=== PATIENT | female | born 1970 | race Caucasian/White ===

== ENCOUNTER 2017-12-07 14:27 | Emergency (ER) | payer BC ==
[2017-12-07 14:34] VITALS: TEMP 98.2
--- NOTE | 2017-12-07 14:38 | CPEKG ---
Heart Rate: 83 RR Interval: 723 P-R Interval: 172 QRSD Interval: 94 QT Interval: 368 QTC Interval: 433 P [place]: 60 QRS [place]: 69 T Wave [place]: 74 EKG Severity - NORMAL ECG - EKG Impression: SINUS RHYTHM Electronically Signed By: Dimlpe Rodriguez 07-Dec-2017 23:02:26
[2017-12-07] MEDS ORDERED: NS 1,000 ML IV ONE (14:59)
[2017-12-07] MEDS ORDERED: ALBUTEROL 3 ML DEYVIAL IH ONE (14:59)
[2017-12-07 15:00] LABS: PLATELET COUNT 196 10^3/uL (150-400)
[2017-12-07] MEDS ORDERED: KETOROLAC 15 MG/1 ML SDV IVP ONE (15:53)
[2017-12-07 16:12] VITALS: RESP 16
[2017-12-07] MEDS ORDERED: IOPAMIDOL (ISOVUE 370) 100 ML BTL IV ONE (16:12)
--- NOTE | 2017-12-07 17:11 | EDPHY ---
H & P Time Seen by Provider: 12/07/17 14:34 HPI/ROS: CHIEF COMPLAINT: Chest pain HISTORY OF PRESENT ILLNESS: This is a 47-year-old female presents emergency department reporting that she has had intermittent episodes of chest discomfort for the past several months. She tells me she was seen by her primary motion in the summer and had EKG obtained which was normal per the patient. Since that time she has developed episodic the anterior chest discomfort, intermittently pleuritic in nature. Over the past week she has described anterior chest discomfort and fullness associated with some nausea. Some shortness of breath and intermittent pleuritic discomfort. No palpitations. No lightheadedness. No dizziness. No fainting. Patient reports a history of asthma but states that this discomfort does not feel similar to her asthma. No history of indigestion, GERD, reflux. Patient has no history of hypertension, hypercholesterolemia, or coronary artery disease. No family history of coronary artery disease. No personal or family history pulmonary embolism. Denies illicit drug use. REVIEW OF SYSTEMS: Aside from elements discussed in the HPI, a comprehensive 10-point review of systems was reviewed and is negative. PAST MEDICAL HISTORY: Asthma SOCIAL HISTORY: Nonsmoker. [facility] patient. VITAL SIGNS: see nurse's notes. GENERAL: Well-developed, well-nourished, in mild discomfort. Patient rates the discomfort as 3-4 /10. HEENT: Atraumatic. Eyes: No injection or icterus. Oropharynx: No erythema , no injection, no swelling. Neck: No JVD, no bruits, supple with no adenopathy. LUNGS: Breath sounds are diminished throughout,, no wheezes, rhonchi or rales. CARDIAC: Regular rate and rhythm, no murmurs, no rubs, no gallops. ABDOMEN: Soft, very mild epigastric and right upper quadrant tenderness, nondistended, bowel sounds normal. BACK: No CVA tenderness. EXTREMITIES: No trauma. No clubbing, cyanosis or edema. Range of motion is normal throughout. NEURO: Alert and oriented , grossly nonfocal. SKIN: No diaphoresis, warm and dry, no rash. Smoking Status: Never smoked Constitutional: Initial Vital Signs Temperature (C) 36.8 C 12/07/17 14:32 Heart Rate 84 12/07/17 14:32 Respiratory Rate 18 12/07/17 14:32 Blood Pressure 156/93 H 12/07/17 14:32 O2 Sat (%) 95 12/07/17 14:32 O2 Delivery Mode Room Air Allergies/Adverse Reactions: cat dander Allergy (Verified 02/24/16 08:26) Home Medications: Medication Instructions Recorded EPINEPHRINE [EPIPEN] 0.3 mg IM ONCE #2 syr 02/24/16 Famotidine [Pepcid] 40 mg PO DAILY #3 tablet 02/24/16 metroNIDAZOLE [Flagyl] 500 mg PO BID #14 tab 02/24/16 predniSONE 60 mg PO DAILY #9 tab 02/24/16 Medical Decision Making - Diagnostics EKG Interpretation: 12-LEAD EKG: Please see the full report in [facility]. My interpretation: [ ] Imaging Results: CXR: Impression: Normal chest x-ray. Dictated By: Alec Beltran MD Chest CT Impression: 1. No evidence of pulmonary thromboembolic disease. 2. Clear lungs except for minimal right middle lobe atelectasis versus scarring. Findings discussed with Emergency Department physician, Dimple Rodriguez M.D., at December 07, 2017 at 1704. Dictated By: Porfirio Page MD ED Course/Re-evaluation: 47-year-old female presenting with intermittent episodes of chest discomfort which have been present for several months. However, over the last week she has had more persistent, constant, anterior chest discomfort associated with some nausea. She does have a history of asthma but reports this does not feel similar to her asthma. No history of GERD or reflux. Breath sounds are diminished throughout. Patient did receive a neb treatment which improved her air flow significantly. EKG is nonischemic. Patient's troponin is negative. Patient does have some pleuritic chest discomfort in her D-dimer is 1.65. Liver function tests and lipase are normal. Patient has no right upper quadrant discomfort. Patient did undergo a CT scan of the chest, demonstrating no pulmonary embolism , however there is some atelectasis in the right middle lobe. I discussed these results with the patient. I encouraged her to use her meter dose inhaler more frequently as some of her discomfort may be related to the atelectasis on the CT scan as well as the diminished breath sounds on examination. I discussed her case with [facility] case management. They will arrange for the patient have an urgent cardiac follow-up. Patient's pain had been present for greater than 6 hr on presentation to the emergency department. Her troponin is negative. I do not believe that she needs further troponins at this point. She was comfortable being discharged and she understands reasons to return to the emergency department. Differential Diagnosis: After history and physical examination, the differential for chest pain was considered, including but not limited to, myocardial ischemia, acute coronary syndrome, pulmonary embolus, chest wall pain, pleural inflammation and pulmonary infectious causes. - Data Points Laboratory Results: Laboratory Results 12/07/17 14:40 12/07/17 14:40 Medications Given: Discontinued Medications Albuterol (Proventil Neb) 3 ml IH EDNOW ONE Stop: 12/07/17 15:00 Last Admin: 12/07/17 15:22 Dose: 3 ml Sodium Chloride (Ns) 1,000 mls @ 0 mls/hr IV EDNOW ONE; Wide Open PRN Reason: Protocol Stop: 12/07/17 15:00 Last Admin: 12/07/17 15:22 Dose: 1,000 mls Ketorolac Tromethamine (Toradol) 15 mg IVP EDNOW ONE Stop: 12/07/17 15:54 Last Admin: 12/07/17 16:11 Dose: Not Given Departure - Departure Disposition: Home, Routine, Self-Care Clinical Impression: Chest pain Qualifiers: Chest pain type: chest pain on breathing Qualified Code(s): R07.1 - Chest pain on breathing; R07.81 - Pleurodynia Abdominal pain Qualifiers: Abdominal location: epigastric Qualified Code(s): R10.13 - Epigastric pain Condition: Good Instructions: Chest Pain (ED) Additional Instructions: No clear cause of your chest discomfort has been identified. Your discomfort may be related to a gastrointestinal cause. It may also be related to your asthma. I would suggest that you use your meter dose inhaler 2 puffs 3 to 4 times a day to see if that helps with the discomfort. I would also suggest beginning [id number] Prilosec. Use as directed. This will help with any acid reflux or indigestion. Referrals: NONE *PRIMARY CARE P,. [Primary Care Provider] - As per Instructions Stand Alone Forms: Work Excuse
[2017-12-07 17:26] VITALS: BP 146/96; PULSE 88; O2SAT 95
== END 2017-12-07 17:25 | disposition home or self-care (01) ==
DX: R07.1 Chest pain on breathing (principal); R07.81 Pleurodynia; R10.13 Epigastric pain; J45.909 Unspecified asthma, uncomplicated; E86.9 Volume depletion, unspecified
CPT/HCPCS: J1885; J7613; Q9967

== ENCOUNTER → 2018-03-18 | Outpatient (CLI) | payer BC | LOC: FIMAGING 12:30 | PROVIDERS: ATTEND Physician Assistant | DX: M51.34 Other intervertebral disc degeneration, thoracic region (principal) ==

== ENCOUNTER 2018-08-05 08:54 | Emergency (ER) | payer BC, OTHER ==
[2018-08-05 09:00] VITALS: BP 149/108
--- NOTE | 2018-08-05 09:04 | EDPHY ---
H & P Stated Complaint: Asthma attack/SOB Time Seen by Provider: 08/05/18 09:04 HPI/ROS: CHIEF COMPLAINT: "I want a nebulizer" HISTORY OF PRESENT ILLNESS: 48-year-old female with history of asthma, no history of coronary artery disease or coagulopathic disorder, complaining of 10 days of URI symptoms, rhinorrhea, sore throat, productive cough development of wheezing and dyspnea in the past 24 hr that is not responding as expected to her albuterol. She has been using her albuterol meter dose inhaler more than usual. No syncope or near syncope. No peripheral edema. No diaphoresis. No chest pain with exertion. PRIMARY CARE PROVIDER:None REVIEW OF SYSTEMS: 10 systems reviewed and negative with the exception of the elements mentioned in the history of present illness PAST MEDICAL & SURGICAL HISTORY: Asthma. SOCIAL HISTORY:Nonsmoker. 17-year-old daughter at home who has not been sick. No cocaine or drug use. FAMILY HISTORY: No coagulopathic disorder or premature coronary artery disease history PHYSICAL EXAM (Prior to examination, patient consented to physical exam, hands were washed and my usual and customary physical exam procedures followed) 1) GENERAL: Well-developed, well-nourished, alert and oriented. Appears to be in no acute distress. Speaking full sentences 2) HEAD: Normocephalic, atraumatic 3) HEENT: Pupils equal, round, reactive to light bilaterally. Sclera anicteric. Nasopharynx, oropharynx, clear, no lesions. No tonsillar enlargement or exudate. Moist Mucous membranes. Ears bilaterally with normal tympanic membranes. No signs of otitis media otitis externa 4) NECK: bilateral end-expiratory wheeze with no retractions or accessory muscle use.. 5) LUNGS: Clear auscultation bilaterally, no wheezes, no rhonchi, no retractions. 6) HEART: Regular rate and rhythm, no murmur, no heave, no gallop. 7) ABDOMEN: No guarding, no rebound, no focal tenderness, negative McBurney's, negative Steele's, negative Rovsing's, negative peritoneal sign, negative Homans no palpable cord 8) MUSCULOSKELETAL: Moving all extremities, no focal areas of tenderness, no obvious trauma. No peripheral edema or discoloration. 9) BACK: No CVA tenderness, no midline vertebral tenderness, no fluctuance, no step-off, no obvious trauma, no visual or palpable abnormality. 10) SKIN: No rash, no petechiae. 11) Psychiatric: Patient is oriented X 3, there is no agitation. DIFFERENTIAL DIAGNOSIS: In no particular order, including but not limited to myocardial ischemia, acute asthma exacerbation pulmonary embolus, chest wall pain, pleural inflammation and pulmonary infectious causes. - Personal History LMP (Females 10-55): Hysterectomy Current Tetanus/Diphtheria Vaccine: No - Medical/Surgical History Hx Asthma: Yes Hx Chronic Respiratory Disease: No Hx Diabetes: No Hx Cardiac Disease: No Hx Renal Disease: No Hx Cirrhosis: No Hx Alcoholism: No Hx HIV/AIDS: No Hx Splenectomy or Spleen Trauma: No Other PMH: PMH: asthma, endometriosis, bartholin cysts. PSH: partial hysterectomy - Social History Smoking Status: Never smoked Constitutional: Initial Vital Signs Temperature (C) 36.7 C 08/05/18 08:57 Heart Rate 111 H 08/05/18 08:57 Respiratory Rate 18 08/05/18 08:57 Blood Pressure 149/108 H 08/05/18 08:57 O2 Sat (%) 98 08/05/18 08:57 O2 Delivery Mode Room Air Allergies/Adverse Reactions: cat dander Allergy (Verified 08/05/18 09:00) Home Medications: Medication Instructions Recorded EPINEPHRINE [EPIPEN] 0.3 mg IM ONCE #2 syr 02/24/16 Famotidine [Pepcid] 40 mg PO DAILY #3 tablet 02/24/16 metroNIDAZOLE [Flagyl] 500 mg PO BID #14 tab 02/24/16 predniSONE 60 mg PO DAILY #9 tab 02/24/16 Albuterol [Proventil Inhaler HFA 1 - 2 puffs IH Q4PRN PRN #1 mdi 08/05/18 (*)] Azithromycin [Zithromax] 500 mg PO DAILY #1 tablet 08/05/18 predniSONE [Prednisone] 20 mg PO DAILY #9 tablet 08/05/18 Medical Decision Making - Diagnostics Imaging Results: Imaging Impressions Chest X-Ray 08/05/18 09:09 Impression: Excellent inspiratory phase. No atelectasis. Images reviewed myself ED Course/Re-evaluation: 9:11 a.m.: I reviewed the patient's old medical records, she was seen emergency department November 2017 for complaints of chest pain which point she had an elevated D-dimer, which point she had a CT which is negative for pulmonary embolus as well as negative troponin. Today in emergency department patient describes dyspnea [place] that she is not responding to her albuterol as usual. No chest pain. No syncope no near syncope. She believes she may have pneumonia. Will administer DuoNeb treatment, steroid obtain chest x-ray is patient is concerned about infiltrate would like a chest x-ray. 9:42 a.m.: Re-evaluation after DuoNeb treatment and oral prednisone. She is feeling improvement, "much better". I Re-auscultated her lungs which are clear bilaterally. Her saturations are 95-97% on room air and heart rate in the low 90s. I think the patient can be discharged at this time. She was noted to be tachycardic at intake which may have been secondary to frequent albuterol usage. I think that cardiac etiology such as ND, pulmonary etiology such as pulmonary embolus, are less than likely in this patient. Nonetheless I did discuss this at length with the patient including her prior ER visit and she is in agreement she believes that her symptoms are more likely secondary to acute asthma exacerbation. Given the longevity of her symptoms I think a trial of antibiotics is appropriate. She has also been given a work and school note. She has been given my usual and customary respiratory precautions instructions that she feels comfortable being discharged home. I saw this patient independently based on established practice protocols. Care of patient under supervision of primary supervising physician Dr Fuentes . - Data Points Medications Given: Discontinued Medications Albuterol/Ipratropium (Duoneb) 3 ml IH EDNOW ONE Stop: 08/05/18 09:10 Last Admin: 08/05/18 09:12 Dose: 3 ml Prednisone (Prednisone) 60 mg PO EDNOW ONE Stop: 08/05/18 09:15 Last Admin: 08/05/18 09:34 Dose: 60 mg Departure - Departure Disposition: Home, Routine, Self-Care Clinical Impression: Asthma exacerbation Condition: Good Instructions: Asthma (ED) Additional Instructions: Seek medical attention if you develop chest pain, worsening shortness of breath , feeling faint, or any other symptoms that concern you. Referrals: [facility],. [Clinic] - 2-3 days, call for appt. Stand Alone Forms: School Excuse, Work Excuse Prescriptions: Albuterol [Proventil Inhaler HFA (*)] 1 - 2 puffs IH Q4PRN PRN #1 mdi PRN Reason: Cough, Moderate Azithromycin [Zithromax] 500 mg PO DAILY #1 tablet predniSONE [Prednisone] 20 mg PO DAILY #9 tablet
[2018-08-05] MEDS ORDERED: IPRATROPIUM/ALBUTEROL 3 ML DEYVIAL IH ONE (09:09)
[2018-08-05] MEDS ORDERED: predniSONE 20 MG TAB PO ONE (09:14)
== END 2018-08-05 09:50 | disposition home or self-care (01) ==
DX: J45.901 Unspecified asthma with (acute) exacerbation (principal)
CPT/HCPCS: J7512